=== PATIENT | male | born 1960 | race Caucasian/White ===

== ENCOUNTER 2018-08-09 09:46 | Outpatient (REF) | payer BC, SELFPAY ==
[2018-08-11 09:13] LABS: PSA, Screening 1.5 ng/ml (0-4.5)
== END 2018-08-09 10:06 ==
LOC: NCHCN 09:46
PROVIDERS: PCP Registered Nurse; Visit Provider Registered Nurse
DX: Z80.42 Family history of malignant neoplasm of prostate (principal); Z12.5 Encounter for screening for malignant neoplasm of prostate
CPT/HCPCS: 84153

== ENCOUNTER 2019-10-24 13:15 | Outpatient (REF) | payer BC, SELFPAY ==
[2019-10-24 21:26] LABS: Anion Gap 9.5 mmol/L (3-11); BUN 19 mg/dL (7-18); CO2 26.5 mmol/L (21.0-32.0); CREATININE 1.19 mg/dL (0.70-1.30); Calcium 9.1 mg/dL (8.5-10.1); Calculated LDL 104 mg/dL (<100); Chloride 108 mmol/L (98-107); Cholesterol 178 mg/dL (<200); Glucose 96 mg/dL (74-106); HDL Cholesterol 30 mg/dL (40-60); Potassium 3.8 mmol/L (3.5-5.1); Sodium 144 mmol/L (136-145); Triglyceride 224 mg/dL (<150)
[2019-10-26 08:42] LABS: PSA, Screening 2.1 ng/mL (0.0-4.5)
== END 2019-10-24 13:35 ==
LOC: NCHCN 13:15
PROVIDERS: PCP Registered Nurse; Visit Provider Internal Medicine
DX: Z00.00 Encounter for general adult medical examination without abnormal findings (principal); Z13.220 Encounter for screening for lipoid disorders; Z13.228 Encounter for screening for other metabolic disorders; Z12.5 Encounter for screening for malignant neoplasm of prostate; Z80.42 Family history of malignant neoplasm of prostate
CPT/HCPCS: 80048; 80061; 84153

== ENCOUNTER 2020-11-28 14:42 | Outpatient (REF) | payer BC, SELFPAY ==
[2020-11-28 22:19] LABS: Calculated LDL 138 mg/dL (<100); Cholesterol 199 mg/dL (<200); HDL Cholesterol 34 mg/dL (40-60); Triglyceride 139 mg/dL (<150)
[2020-11-29 17:34] LABS: PSA, Screening 2.6 ng/mL (0.0-4.5)
== END 2020-11-28 14:43 | disposition home or self-care (01) ==
LOC: NCHCN 14:42
PROVIDERS: PCP Registered Nurse; Visit Provider Internal Medicine
DX: E78.5 Hyperlipidemia, unspecified (principal); Z12.5 Encounter for screening for malignant neoplasm of prostate; Z80.42 Family history of malignant neoplasm of prostate
CPT/HCPCS: 80061; 84153

== ENCOUNTER 2021-04-26 19:14 | Outpatient (REF) | payer SELFPAY ==
[2021-04-29 11:22] LABS: Lyme Ab w Rflx to Lyme Confirm Negative (Negative)
== END 2021-04-26 19:15 | disposition home or self-care (01) ==
LOC: NCHCN 19:14
PROVIDERS: PCP Registered Nurse; Visit Provider Internal Medicine
DX: M25.50 Pain in unspecified joint (principal)
CPT/HCPCS: 86618

== ENCOUNTER 2023-01-22 09:54 | Outpatient (REF) | payer OTHER, SELFPAY ==
[2023-01-22 16:31] LABS: C Diff PCR Negative (Negative)
[2023-01-24 11:04] LABS: Campylobacter PCR Negative (Negative); Salmonella PCR Negative (Negative); Shiga Toxin PCR Negative (Negative); Shigella/Enteroinvasive Ecoli Negative (Negative)
== END 2023-01-22 09:55 | disposition home or self-care (01) ==
LOC: NCHCN 09:54
PROVIDERS: PCP Registered Nurse; Visit Provider Internal Medicine
DX: R19.7 Diarrhea, unspecified (principal)
CPT/HCPCS: 87329; 87493; 87505; 83630